=== PATIENT | male | born 1940 | race Caucasian/White ===

== ENCOUNTER 2017-05-31 12:46 | Observation (INO) ==
[2017-05-31] MEDS ORDERED: 0.9 % Sodium Chloride 1,000 ML IVC ONE (12:53)
[2017-05-31 13:11] LABS: Basophils % 0.5 %; Eosinophils # 0.2 K/mcL (0.0-0.6); Eosinophils % 2.4 %; Hematocrit 34.9 % (37.5-50.1); Hemoglobin 11.8 g/dL (12.9-16.9); Immature Granulocytes % 0.5 % (0-4); Lymphocytes % 14.8 %; Mean Corpuscular HGB Conc 33.8 g/dL (31.6-35.5); Mean Corpuscular Hemoglobin 30.6 pg (28.0-33.3); Mean Corpuscular Volume 90.4 fL (83.0-100.0); Mean Platelet Volume 9.7 fL (9.4-12.4); Monocytes # 0.4 K/mcL (0.0-1.3); Monocytes % 5.8 %; Platelet Count 194 K/mcL (140-400); Red Blood Count 3.86 M/mcL (4.19-5.50); Red Cell Distribution Width 13.2 % (11.5-14.5)
[2017-05-31 13:16] LABS: INR 1.2; Prothrombin Time 12.8 Seconds (9.4-12.1)
[2017-05-31 13:18] LABS: Activated Partial Thrombo Time 28.8 Seconds (26.0-36.0)
[2017-05-31 13:23] LABS: BUN/Creatinine Ratio 12 (6-26); Blood Urea Nitrogen 15 mg/dL (8-26); Carbon Dioxide 26 mEq/L (19-29); Chloride 105 mEq/L (98-109); Glucose 112 mg/dL (70-99); Osmolality,Calculated 290 (280-300); Potassium 3.5 mEq/L (3.5-4.5); Sodium 139 mEq/L (136-145); eGFR For African Americans > 60 (> 60); eGFR For Non-African Americans 58 (> 60)
--- NOTE | 2017-05-31 13:28 | Emergency Department Note ---
Disposition Clinical Impression: Syncope Qualifiers: Syncope type: unspecified Qualified Code(s): R55 - Syncope and collapse Disposition: Admitted As Inpatient Condition: Good Referrals: NONE,PCP [Non-Partnered Physician] - Forms: ED Satisfaction Letter Time of Disposition: 14:03 Weakness HPI - General Chief complaint: ED Weakness Stated complaint: Weakness Time Seen by Provider: 05/31/17 12:50 Source: patient, EMS, other Limitations: no limitations Nursing Notes Reviewed: Yes Vital Signs Reviewed: Yes - History of Present Illness HPI Narrative: 76 year old male who is here with his brother (JOYCE) and other rib builder and he has baseline MRDD so the rib builder and brother are main historian. they state that patient has been at the fair today (usually drinks soda and coffee) and that he went and got his food and then sat down and suddenly had a syncopal event for about one minute and that is when squad was called which he then became aleart and did not recollect what happened. Patient has a history of stroke from the past which has left him with some right sided defecit. Patient at the time of syncopal event was diaphoretic and nauseated as well. Patient states that he feels better now and is essentialy asymoptomatic although he is a poor and unreliable historian. Pain Scale: 0 - Related Data Home Medications Medication Instructions Recorded Confirmed Aspirin Enteric Coated [Aspirin EC] 325 mg PO DAILY 05/31/17 05/31/17 Fluticasone Propionate Nasal 2 spr NS DAILY 05/31/17 05/31/17 [Flonase] Lisinopril/Hydrochlorothiazide 1 tab PO DAILY 05/31/17 05/31/17 [Zestoretic 20-25 mg Tablet] Loratadine [Allergy Relief] 10 mg PO DAILY 05/31/17 05/31/17 Montelukast [Singulair] 10 mg PO DAILY 05/31/17 05/31/17 Simvastatin [Zocor] 10 mg PO QPM 05/31/17 05/31/17 Terazosin [Hytrin] 5 mg PO DAILY 05/31/17 05/31/17 Allergies Allergy/AdvReac Type Severity Reaction Status Date / Time Penicillins Allergy See Verified 05/31/17 13:50 Comments Sulfa (Sulfonamide Allergy See Verified 05/31/17 13:50 Antibiotics) Comments Constitutional: Reports: weakness. Denies: fever, chills, weight change Eyes: Denies: eye pain, eye discharge, vision change ENT ED: Denies: ear pain, throat pain, dental pain, hearing loss, epistaxis, congestion, dysphagia Cardiovascular: Denies: chest pain, palpitations, dyspnea on exertion, edema, syncope Respiratory: Denies: cough, dyspnea, wheezes, hemoptysis, stridor Gastrointestinal: Reports: nausea. Denies: abdominal pain, vomiting, diarrhea, constipation, hematemesis, melena, hematochezia Genitourinary: Denies: urgency, dysuria, frequency, hematuria Musculoskeletal: Denies: back pain, neck pain, arthralgia, myalgia Integumentary: Denies: rash, abrasion, lesions Neurological: Denies: headache, weakness, numbness, paresthesias, confusion, abnormal gait, vertigo Psychiatric: Denies: anxiety, depression, suicidal thoughts, homicidal thoughts , auditory hallucinations, visual hallucinations Endocrine: Denies: fatigue Hematological/Lymphatic: Denies: easy bleeding, easy bruising Allergic/Immunologic: Denies: facial swelling, urticaria Past Medical History - Past Medical History Medical history: Reports: non-contributory, other - Social History Smoking Status: Never smoker Smokeless Tobacco Status: No Alcohol use: Reports: none Drug use: Reports: none Physical Exam - General Limitations: no limitations General appearance: alert, in no apparent distress - Head Head exam: atraumatic, normocephalic, normal inspection - Eye Eye exam: Present: normal appearance, PERRL, EOMI - Expanded Eye Exam Pupils: Left: reactive - ENT ENT exam: normal exam, normal oropharynx, mucous membranes moist - Expanded ENT Exam External ear exam: Present: normal external inspection Mouth exam: Present: normal external inspection Teeth exam: Present: normal inspection Throat exam: Present: normal inspection - Neck Neck exam: Present: normal inspection, full ROM, trachea midline - Chest Chest inspection: Present: normal inspection, symmetric chest wall rise - Respiratory Respiratory exam: Present: normal lung sounds bilaterally - Cardiovascular Cardiovascular exam: Present: regular rate, normal rhythm, normal heart sounds - Abdominal Exam Abdominal exam: Present: soft, Non-Tender. Absent: tenderness, distention, guarding, rebound, rigidity - Extremities Exam Extremities exam: Present: normal inspection, full ROM. Absent: tenderness, pedal edema - Expanded Upper Extremity Exam Shoulder exam: Present: normal inspection, full ROM Arm exam: Present: normal inspection, full ROM Elbow exam: Present: normal inspection, full ROM Forearm/Wrist exam: Present: normal inspection, full ROM Hand exam: Present: normal inspection, full ROM Vascular exam: Normal: capillary refill, radial pulse - Expanded Lower Extremity Exam Hip/Pelvis exam: Present: normal inspection, full ROM Upper leg exam: Present: normal inspection, full ROM Knee exam: Present: normal inspection, full ROM Lower leg exam: Present: normal inspection, full ROM Ankle exam: Present: normal inspection, full ROM Foot/toe exam: Present: normal inspection, full ROM Neurovascular/Tendon exam: Absent: motor deficit, sensory deficit, tendon deficit - Back Exam Back exam: Present: normal inspection, full ROM. Absent: tenderness - Neurological Exam Neurological exam: Present: alert, oriented X3 - Expanded Neurological Exam Patient oriented to: Present: person, place, time Speech: Present: fluid speech Cranial nerves: EOM function (II, III, IV, ): Normal, facial sensation (V): Normal, facial palsy (VII): Normal, gag reflex (IX): Normal, tongue deviation ( XII): Normal Cerebellar function: finger to nose: Normal Cerebellar function: normal gait Motor strength - LUE: 4/5 Motor strength - RUE: 4/5 Motor strength - LLE: 4/5 Motor strength - RLE: 4/5 Upper motor neuron exam: kylie neglect: Absent bilaterally, pronator drift: Absent bilaterally Sensory exam upper extremity: light touch: Normal, pin prick: Normal Sensory exam lower extremity: light touch: Normal, pin prick: Normal Coma Scale Eye Opening: Spontaneous Coma Scale Motor Response: Obeys Commands Coma Scale Verbal Response: Oriented Coma Scale Total: 15 - Psychiatric Psychiatric exam: Present: normal affect, normal mood - Skin Skin exam: Present: warm, dry, intact, normal color Course Course Narrative: we will do a cardiac workup as in my differentia is ACS r/o DE as well as arrhtyhmias. There may be a source of dehydration as well. Although I am more concernd for a cardiac source. Will likely admit to medicine. - Reevaluation(s) Reevaluation #1: updated patient and family on results We will admit to medicine for at least obs because of the suspicious story for syncope and for nothing else to wath his cardiac rhythm. Patient does not appear to have dehydration component on board and due to his age an abnormla cardiac rhythm could be a possibliity. Patinet and family are agreeable to plan. Time: 14:03 Vital Signs Temperature 98 F 05/31/17 12:49 Pulse Rate 73 05/31/17 12:49 Respiratory Rate 16 05/31/17 12:49 Blood Pressure 104/61 05/31/17 12:49 O2 Sat by Pulse Oximetry 94 05/31/17 12:49 Temperature 98 F 05/31/17 12:49 Pulse Rate 73 05/31/17 13:30 Respiratory Rate 16 05/31/17 13:30 Blood Pressure 118/64 05/31/17 13:30 O2 Sat by Pulse Oximetry 96 05/31/17 13:30 Oxygen Delivery Oxygen Delivery Room Air Weakness - Lab Data Result diagrams: 05/31/17 13:04 05/31/17 13:04 Lab Results 05/31/17 05/31/17 05/31/17 Range/Units 13:04 13:04 13:04 WBC 6.6 (4.3-11.1) K/mcL RBC 3.86 L (4.19-5.50) M/mcL Hgb 11.8 L (12.9-16.9) g/dL Hct 34.9 L (37.5-50.1) % MCV 90.4 (83.0-100.0) fL MCH 30.6 (28.0-33.3) pg MCHC 33.8 (31.6-35.5) g/dL RDW 13.2 (11.5-14.5) % Plt Count 194 (140-400) K/mcL MPV 9.7 (9.4-12.4) fL Immature Gran % 0.5 (0-4) % Seg Neutrophils % 76.0 % Lymphocytes % 14.8 % Monocytes % 5.8 % Eosinophils % 2.4 % Basophils % 0.5 % Neutrophils # 5.0 (1.6-8.9) K/mcL Lymphocytes # 1.0 (0.6-4.6) K/mcL Monocytes # 0.4 (0.0-1.3) K/mcL Eosinophils # 0.2 (0.0-0.6) K/mcL Basophils # 0.0 (0.0-0.2) K/mcL PT 12.8 H (9.4-12.1) Seconds INR 1.2 APTT 28.8 (26.0-36.0) Seconds Sodium 139 (136-145) mEq/L Potassium 3.5 (3.5-4.5) mEq/L Chloride 105 (98-109) mEq/L Carbon Dioxide 26 (19-29) mEq/L BUN 15 (8-26) mg/dL Creatinine 1.21 (0.72-1.25) mg/dL Est GFR ( Amer) > 60 (> 60) Est GFR (Non-Af Amer) 58 L (> 60) BUN/Creatinine Ratio 12 (6-26) Glucose 112 H (70-99) mg/dL POC Glucose (58-89) Calculated Osmolality 290 (280-300) Calcium 9.0 (8.6-10.8) mg/dL Troponin I (0-0.03) ng/mL 05/31/17 05/31/17 Range/Units 13:04 13:06 WBC (4.3-11.1) K/mcL RBC (4.19-5.50) M/mcL Hgb (12.9-16.9) g/dL Hct (37.5-50.1) % MCV (83.0-100.0) fL MCH (28.0-33.3) pg MCHC (31.6-35.5) g/dL RDW (11.5-14.5) % Plt Count (140-400) K/mcL MPV (9.4-12.4) fL Immature Gran % (0-4) % Seg Neutrophils % % Lymphocytes % % Monocytes % % Eosinophils % % Basophils % % Neutrophils # (1.6-8.9) K/mcL Lymphocytes # (0.6-4.6) K/mcL Monocytes # (0.0-1.3) K/mcL Eosinophils # (0.0-0.6) K/mcL Basophils # (0.0-0.2) K/mcL PT (9.4-12.1) Seconds INR APTT (26.0-36.0) Seconds Sodium (136-145) mEq/L Potassium (3.5-4.5) mEq/L Chloride (98-109) mEq/L Carbon Dioxide (19-29) mEq/L BUN (8-26) mg/dL Creatinine (0.72-1.25) mg/dL Est GFR ( Amer) (> 60) Est GFR (Non-Af Amer) (> 60) BUN/Creatinine Ratio (6-26) Glucose (70-99) mg/dL POC Glucose 110 H (58-89) Calculated Osmolality (280-300) Calcium (8.6-10.8) mg/dL Troponin I 0.00 (0-0.03) ng/mL - EKG Data EKG attestation: Yes I reviewed and interpreted this EKG. EKG results narrative: NSR with rate of 67. NO STEMI normal intervals. no old ekg 1249
[2017-05-31] MEDS ORDERED: Naloxone 0.4 MG/ML INJ IVP PRN (15:44)
--- NOTE | 2017-05-31 16:02 | Internal Med History&Physical ---
<Paco Ross - Last Filed: 05/31/17 15:56> Date of Encounter: 05/31/17 Time of Encounter: 15:57 Assessment and Plan (1) Syncope Current visit: Yes Status: Acute Witnessed syncopal event this afternoon with diaphoresis, was unresponsive for approximately 1 minute. no focal deficits present following syncope. EKG in the ED showed normal sinus rhythm, was a little hypotensive on arrival and received a 2 L fluid bolus which corrected the hypotension, first troponin is negative. Considering cardiogenic versus neurogenic syncope as he does have a past history of CVA. However, at this time it appears to be cardiogenic since he has not exhibited any focal neuro deficits. We will consider further neurological workup depending on the results of the CT head without contrast and if neuro deficits arise. Place in observation status Continuous cardiac monitoring CT head without contrast Bilateral carotid duplex O2 as needed Every 4 hours neuro checks ordered Every 4 hours vital signs Obtain orthostatic vital signs obtain TSH with morning labs Continue antihypertensives since his blood pressure has responded to the bolus Gentle IV hydration at 50 mL per hour 1 L Check a CBC and BMP in the a.m. Qualifiers: Syncope type: unspecified Qualified Code(s): R55 - Syncope and collapse (2) HTN (hypertension) Current visit: Yes Status: Chronic History of chronic essential hypertension. However, upon presenting to the emergency department he was hypotensive. He received a 2 L bolus and responded appropriately. We will continue home dose of lisinopril and Terazosin for now. If hypotension recurs, will stop blood pressure medications Qualifiers: Hypertension type: essential hypertension Qualified Code(s): I10 - Essential (primary) hypertension (3) DVT prophylaxis Current visit: Yes Status: Acute Risk for DVT with a decrease in activity while admitted to the hospital. Start lovenox SC daily dose. Internal Medicine - H&P: HPI Chief complaint: Witnessed syncopal event Admitted From: Home Plans for Post Hospital Care: Home History of present illness: Mr. Abbasi is a 76 year old male with a past medical history of CVA as reported by his brother, homonymous hemianopsia, hypertension, hyperlipidemia, BPH. Lives at home with his brother and [id number]. Presented to [facility] today on 05-31-17 for a witnessed syncopal event. All information was obtained from chart review and patient/family member report. The patient does have MRDD. Presents with his brother stating that he went to the fair today with his caretakers. States that he went to get some food and when he sat down he suddenly became diaphoretic and syncopal; event lasted for approximately 1 minute. The squad was then called and he was transported to [facility]. In the ED he received a 2 L fluid bolus as he was hypotensive on arrival. Blood pressure is now stable with systolic blood pressures in the 140s. Neuro exam revealed no focal deficits with the exception of right-sided weakness which his brother has reported an having since , troponins were obtained and found to be negative. CBC and BMP were obtained and unremarkable. The patient denied any shortness of breath, chest pain, dyspnea, dizziness, vision changes, headaches, or weakness. Plan is to rule out syncopal event cardiogenic versus neurogenic versus medications. He is being admitted today for observation, further workup and evaluation. Past Med Surg Social Fam HX - Past Medical History Medical history: non-contributory, other - Social History Smoking Status: Never smoker Smokeless Tobacco Status: No Alcohol use: none Drug use: none Internal Medicine - H&P: Meds Aspirin Enteric Coated [Aspirin EC] 325 mg PO DAILY 05/31/17 [History] Fluticasone Propionate Nasal [Flonase] 2 spr NS DAILY 05/31/17 [History] Lisinopril/Hydrochlorothiazide [Zestoretic 20-25 mg Tablet] 1 tab PO DAILY 05/31 [History] Loratadine [Allergy Relief] 10 mg PO DAILY 05/31/17 [History] Montelukast [Singulair] 10 mg PO DAILY 05/31/17 [History] Simvastatin [Zocor] 10 mg PO QPM 05/31/17 [History] Terazosin [Hytrin] 5 mg PO DAILY 05/31/17 [History] Allergies Penicillins Allergy (Verified 05/31/17 13:50) See Comments Patient is unsure of reaction. Sulfa (Sulfonamide Antibiotics) Allergy (Verified 05/31/17 13:50) See Comments Patient unsure of reaction All Systems PM: A 10-system review of systems was performed and is negative for pertinent findings except as documented above in the HPI. - Constitutional Constitutional: no chills, no fatigue, no fever(s), no falls, no lethargy, no night sweats, no weakness, no weight gain - EENT Eyes: no blurry vision, no change in vision, no discharge, no pain, no photophobia Additional comments: The vision changes noted from patient normal, he does have a history of homonymous hemianopsia Ears: no ear discharge, no ear pain, no tinnitus Nose, mouth and throat: no dysphagia, no nasal discharge, no neck pain, no sore throat - Cardiovascular Cardiovascular ROS IM: diaphoresis, lightheadedness, syncope, no chest pain, no dyspnea, no dyspnea on exertion, no edema, no irregular heart rhythm, no palpitations Additional comments: Admitted to being diaphoretic during the syncopal event - Respiratory Respiratory: no cough, no dyspnea, no dyspnea on exertion, no wheezing, no excessive phlegm production - Gastrointestinal Gastrointestinal: no abdominal pain, no diarrhea, no hematemesis, no hematochezia, no melena, no nausea, no vomiting - Musculoskeletal Musculoskeletal ROS IM: no muscle cramps, no muscle weakness, no numbness, no tingling - Integumentary Integumentary IM: no rash, no unusual bruising - Neurological Neurological ROS: weakness, no behavioral changes, no confusion, no convulsions , no dizziness, no focal weakness, no headache(s), no loss of vision, no numbness, no tingling, no tremor(s) - Hematologic/Lymphatic Hematologic/Lymphatic: no easy bruising - Constitutional Vitals: Temp Pulse Resp BP Pulse Ox 98 F 73 16 123/83 96 05/31/17 12:49 05/31/17 13:30 05/31/17 15:43 05/31/17 15:43 05/31/17 13:30 General appearance: Present: A&O X 3, pleasant, no acute distress, answers questions appropriately - Head Head exam: Present: atraumatic, normocephalic - Eye Eye exam: Present: EOMI, PERRL, conjuntiva pink, sclera anicteric. Absent: nystagmus Pupils: Present: PERRL - Neck Neck exam general surgery: Present: supple, trachea midline. Absent: lymphadenopathy - Respiratory Respiratory exam: Present: CTAB. Absent: accessory muscle use, rales, rhonchi, wheezes - Cardiovascular Cardiovascular exam: Present: RRR, +S1, +S2. Absent: diastolic murmur, gallop, rubs, systolic murmur - Expanded Cardiovascular Exam Peripheral pulses: 2+: Radial (L), Radial (R), Posterior Tibialis (L), Posterior Tibialis (R) - GI/Abdominal GI/Abdominal exam: Present: normal bowel sounds, soft, no peritoneal signs. Absent: distended, tenderness - Extremities Exam Extremities exam: Present: normal capillary refill, warm, radial pulses palpable and symmetrical. Absent: calf tenderness, cyanotic, pedal edema - Neurological Exam Neurological exam: Present: CN II-XII intact, oriented X3, no focal deficits. Absent: pronater drift, facial droop, speech deficit - Skin Skin exam: Present: dry, intact Internal Med - H&P Results - Labs CBC & Chem 7: 05/31/17 13:04 05/31/17 13:04 - EKG Data -: EKG Interpreted by Myself EKG shows normal: sinus rhythm Rate: normal <Lara Gomez - Last Filed: 05/31/17 18:49> Date of Encounter: 05/31/17 Internal Medicine - H&P: HPI History of present illness: Mr. Abbasi is a 76 year old male All Systems PM: A 10-system review of systems was performed and is negative for pertinent findings except as documented above in the HPI. - Constitutional Vitals: Temp Pulse Resp BP Pulse Ox 97.6 F 73 14 152/84 97 05/31/17 16:21 05/31/17 16:21 05/31/17 16:21 05/31/17 16:21 05/31/17 18:28 Internal Med - H&P Results - Labs CBC & Chem 7: 05/31/17 13:04 05/31/17 13:04 - Impressions ITS Impressions Head CT 05/31/17 16:41 IMPRESSION: 1. 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 2. No acute intracranial abnormality. 3. Evidence of acute on chronic sinusitis involving the left maxillary sinus. Interval resolution of mucosal thickening within the right maxillary sinus. D/ / Tanmay Martin MD / Tanmay Martin MD Interpreting Provider: Tanmay Martin MD - Attending Attestation I examined this patient and my medical decision-making was reviewed with the [employer]> . I agree with the documented findings, disposition and treatment plan as described .
[2017-05-31] MEDS: 0.9 % Sodium Chloride 1,000 ML IVC SCH (16:17)
[2017-06-01 01:31] LABS: Basophils % 0.4 %; Eosinophils # 0.3 K/mcL (0.0-0.6); Eosinophils % 3.6 %; Hematocrit 34.5 % (37.5-50.1); Hemoglobin 11.7 g/dL (12.9-16.9); Immature Granulocytes % 0.3 % (0-4); Immature Platelets 3.4 % (1.1-6.1); Lymphocytes # 1.4 K/mcL (0.6-4.6); Mean Corpuscular HGB Conc 33.9 g/dL (31.6-35.5); Mean Corpuscular Hemoglobin 30.6 pg (28.0-33.3); Mean Corpuscular Volume 90.3 fL (83.0-100.0); Mean Platelet Volume 9.9 fL (9.4-12.4); Monocytes # 0.6 K/mcL (0.0-1.3); Monocytes % 8.2 %; Neutrophils # 4.6 K/mcL (1.6-8.9); Platelet Count 220 K/mcL (140-400); Red Blood Count 3.82 M/mcL (4.19-5.50); Red Cell Distribution Width 13.1 % (11.5-14.5); Segmented Neutrophils % 66.5 %
[2017-06-01 01:46] LABS: Alanine Aminotransferase 16 Units/L (0-55); Albumin 3.1 g/dL (3.5-5.0); Albumin/Globulin Ratio 0.9 (1.1-2.2); Alkaline Phosphatase 67 Units/L (38-126); Aspartate Amino Transferase 28 Units/L (5-34); BUN/Creatinine Ratio 14 (6-26); Bilirubin,Total 0.4 mg/dL (0.2-1.2); Blood Urea Nitrogen 14 mg/dL (8-26); Calcium 8.6 mg/dL (8.6-10.8); Carbon Dioxide 25 mEq/L (19-29); Chloride 107 mEq/L (98-109); Globulin 3.5 g/dL (2.4-3.5); Glucose 95 mg/dL (70-99); Osmolality,Calculated 288 (280-300); Sodium 139 mEq/L (136-145); Total Protein 6.6 g/dL (6.0-8.3); eGFR For African Americans > 60 (> 60); eGFR For Non-African Americans > 60 (> 60)
[2017-06-01 01:47] LABS: Potassium 3.8 mEq/L (3.5-4.5)
[2017-06-01 02:08] LABS: Thyroid Stimulating Hormone 0.738 mcIU/mL (0.350-4.840)
[2017-06-01] MEDS ORDERED: *HR* Enoxaparin 40 MG/0.4 ML SYRINGE SQ SCH (06:00)
[2017-06-01] MEDS ORDERED: Fluticasone Propionate Nasal 50 MCG/SPRAY BOTTLE NS SCH (09:00)
[2017-06-01] MEDS ORDERED: Aspirin Enteric Coated 325 MG Tablet PO SCH (09:00)
[2017-06-01] MEDS ORDERED: Loratadine 10 MG TABLET PO SCH (09:00)
[2017-06-01 11:12] VITALS: BP 139/73
[2017-06-01] MEDS: 0.9 % Sodium Chloride 1,000 ML IVC SCH (11:13)
--- NOTE | 2017-06-01 11:41 | Discharge Summary ---
Date of Encounter: 06/01/17 Time of Encounter: 11:41 - Discharge Diagnosis (1) Syncope Priority: Primary Status: Acute Qualifiers: Syncope type: unspecified Qualified Code(s): R55 - Syncope and collapse (2) HTN (hypertension) Priority: Secondary Status: Chronic Qualifiers: Hypertension type: essential hypertension Qualified Code(s): I10 - Essential (primary) hypertension (3) HLD (hyperlipidemia) Priority: Secondary Status: Acute Qualifiers: Hyperlipidemia type: mixed hyperlipidemia Qualified Code(s): E78.2 - Mixed hyperlipidemia (4) DVT prophylaxis Priority: Secondary Status: Acute - Discharge Medications Prescriptions: Lisinopril/Hydrochlorothiazide [Zestoretic 20-12.5 mg Tablet] 1 each PO DAILY # 30 tablet Home Medications: Aspirin Enteric Coated [Aspirin EC] 325 mg PO DAILY 05/31/17 [History] Fluticasone Propionate Nasal [Flonase] 2 spr NS DAILY 05/31/17 [History] Loratadine [Allergy Relief] 10 mg PO DAILY 05/31/17 [History] Montelukast [Singulair] 10 mg PO DAILY 05/31/17 [History] Simvastatin [Zocor] 10 mg PO QPM 05/31/17 [History] Lisinopril/Hydrochlorothiazide [Zestoretic 20-12.5 mg Tablet] 1 each PO DAILY # 30 tablet 06/01/17 [Rx] Terazosin [Hytrin] 5 mg PO HS #0 06/01/17 [Rx] Allergies/Adverse Reactions: Allergies Penicillins Allergy (Verified 05/31/17 13:50) See Comments Patient is unsure of reaction. Sulfa (Sulfonamide Antibiotics) Allergy (Verified 05/31/17 13:50) See Comments Patient unsure of reaction Procedures/tests Complete & Pending: Procedures Performed prior 72 hours Category Date Time Status CT head/brain wo con [CT] Stat Cat Scan 05/31/17 16:41 Completed EV carotid duplex imaging BI Stat Y 05/31/17 16:41 Completed EV echocardiogram Stat Y 05/31/17 16:32 Completed Date of admission: 05/31/17 14:29 Primary care physician: Arlene Champagne Consults: 05/31/17 16:07 Consult to Rooming House Inspector [CONS] Routine Reason for SW Consult: discharge planning Discharging clinician: Marva Escobar Anticipated date of discharge: 06/01/17 - Patient Status Disposition: Home, Self-Care Condition: Good Functional capacity at discharge: independent ambulation Overall status at discharge: patient is progressing back to baseline - Discharge Instructions Instructions: Syncope (DC) Follow Up With: Arlene Champagne MD [Primary Care Provider] - (in 1-2 weeks) - Diet and Activity Activity: increase activity as tolerated Diet: low fat, low cholesterol, low salt diet Hospital course: Mr. Abbasi is a 76 year old male patient with a history of CVA, homonymous hemianopsia, hypertension, hyperlipidemia and BPH with MRDD who was hospitalized here following an episode of syncope while the patient was outside at the [facility]. He apparently had been ambulating through most of the morning after eating a light breakfast and had just sat down to eat lunch when he became passed out for about 1 minute according to his family members who were with him. He was then transported to the ER here and by that time his symptoms had mostly resolved. CT scan of the head done in the ER did not show any acute abnormalities. Patient was hospitalized for workup of syncope. He did have signs suggestive of dehydration with a slight elevation in his creatinine. Patient does take lisinopril and hydrochlorothiazide at home. He also takes Hytrin in the morning which can cause orthostatic hypotension. Patient underwent 2-D echocardiogram which showed normal ejection fraction of 60 -65% with mild left ventricular diastolic dysfunction. Carotid Dopplers did not show any significant stenosis. Patient's orthostatic blood pressure was checked this morning and they were negative for signs of orthostasis. At this time patient is feeling much better and is stable to be discharged home. Most likely his syncopal episode was related to dehydration. Patient does state lots of caffeine in the form of Pepsi Cola and coffee and also takes hydrochlorothiazide which can make him dehydrated. His dosage of hydrochlorothiazide will be decreased. He is also advised to take his Hytrin at bedtime for symptoms of orthostatic hypotension gave him the daytime. He can follow up with his primary care provider for further management. - Time Spent with Patient Total time spent providing and/or coordinating discharge services: Less than 30 minutes (25 min) - Constitutional Vitals: Temp Pulse Resp BP Pulse Ox 98.1 F 65 14 139/73 97 06/01/17 10:24 06/01/17 10:24 06/01/17 10:24 06/01/17 10:24 06/01/17 10:24 General appearance: Present: A&O X 3, pleasant, no acute distress, answers questions appropriately - Respiratory Respiratory exam: Present: CTAB. Absent: accessory muscle use, rales, rhonchi, wheezes - Cardiovascular Cardiovascular exam: Present: RRR, +S1, +S2. Absent: diastolic murmur, gallop, rubs, systolic murmur - GI/Abdominal GI/Abdominal exam: Present: normal bowel sounds, soft, no peritoneal signs. Absent: distended, tenderness - Neurological Exam Neurological exam: Present: alert, oriented X3, no focal deficits, strengths equal and symetr throughout. Absent: facial droop, speech deficit
--- NOTE | 2017-06-01 15:26 | Electrocardiograph Report ---
[place] [id number] Test Date: 2017-05-31 Pat Name: Kyaw Abbasi Department: 102 Room: 3A21 Gender: M [employer]visor [employer]: Maia : 1940 Requested By: No Philippe Order Number: [id number] Reading MD: Raffy Morales Measurements Intervals [place] Rate: 67 P: 38 VA: 199 QRS: 24 QRSD: 110 T: 31 QT: 397 QTc: 412 Interpretive Statements SINUS RHYTHM Electronically Signed On 06-01-2017 15:24:28 EDT by Raffy Morales
--- NOTE | 2017-06-02 12:51 | Carotid Imaging Report ---
Carotid Duplex Patient Name:Kyaw Abbasi Order Number:[id number] Procedure Date:05/31/2017 Date:8Age:76 yrs Gender:Male Lt BP:152 / 84 mmHg Rt.BP:152 / 84 mmHgHeart Rate: Location:[facility] Room #: 3A21 News Videotape Editor:Yessi Fam Referring MD:Paco Ross CNP information assurance:None Reading MD:Connor Grider MD , FACS Primary Indications:Witnessed syncopal event Risk Factors Yes/No Hypertension Hypercholesterolemia Hx of CVA Impressions: Findings: Bilateral carotid systems essentially normal. Carotid Results Right PSV EDV Assessment Proximal CCA 167 20 Normal Mid CCA 92 13 Normal Distal CCA 81 16 Normal Bifurcation 48 11 Normal Proximal ICA 63 18 Normal Mid ICA 83 24 Normal Distal ICA 90 32 Normal ECA 115 20 Normal Vertebral Artery 42 13 Antegrade Flow Left PSV EDV Assessment Proximal CCA 134 20 Normal Mid CCA 123 20 Normal Distal CCA 111 18 Normal Bifurcation 98 19 Normal Proximal ICA 77 15 Normal Mid ICA 78 22 Normal Distal ICA 88 33 Normal ECA 121 16 Normal Vertebral Artery 35 10 Antegrade Flow Ratio's Right ICA/CCA Ratio: 0.98 ICA/CCA Values: 90/92 Left ICA/CCA Ratio: 0.72 ICA/CCA Values: 88/123 Updated by Connor Grider MD, FACS on 06/02/2017 12:43:28 PM Connor Grider MD electronically signed on 06/02/2017 12:43:46 PM with status of Final
== END 2017-06-01 12:44 | disposition home or self-care (01) ==
LOC: 3ANU 12:46 → EMEROO 12:46 → 3ANU 15:56
PROVIDERS: ADMIT Internal Medicine; ATTEND Internal Medicine

== ENCOUNTER 2020-11-06 16:58 | Observation (INO) ==
[2020-11-06 17:53] LABS: Basophils % 0.1 %; Eosinophils # 0.1 K/mcL (0.0-0.6); Eosinophils % 0.6 %; Hematocrit 30.5 % (37.5-50.1); Hemoglobin 9.8 g/dL (12.9-16.9); Immature Granulocytes % 1.5 % (0-4); Lymphocytes # 0.4 K/mcL (0.6-4.6); Lymphocytes % 4.7 %; Mean Corpuscular HGB Conc 32.1 g/dL (31.6-35.5); Mean Corpuscular Hemoglobin 28.7 pg (28.0-33.3); Mean Corpuscular Volume 89.4 fL (83.0-100.0); Monocytes # 0.3 K/mcL (0.0-1.3); Monocytes % 4.2 %; Neutrophils # 7.1 K/mcL (1.6-8.9); Platelet Count 230 K/mcL (140-400); Red Blood Count 3.41 M/mcL (4.19-5.50); Red Cell Distribution Width 13.9 % (11.5-14.5); Segmented Neutrophils % 88.9 %
[2020-11-06 18:11] LABS: BUN/Creatinine Ratio 23 (6-26); Blood Urea Nitrogen 26 mg/dL (8-23); Calcium 8.4 mg/dL (8.6-10.3); Carbon Dioxide 23 mEq/L (23-29); Chloride 100 mEq/L (98-107); Glucose 225 mg/dL (70-105); Osmolality,Calculated 288 (280-300); Potassium 3.4 mEq/L (3.5-5.1); Sodium 133 mEq/L (136-145); eGFR For African Americans > 60 (> 60); eGFR For Non-African Americans > 60 (> 60)
[2020-11-06 18:12] LABS: Troponin I < 0.03 ng/mL (< 0.04)
[2020-11-06] MEDS ORDERED: Dexamethasone 4 MG/ML VIAL IVP ONE (18:52)
[2020-11-06] MEDS ORDERED: cefTRIAXone 1,000 MG in Water for inj. (sterile) 10 ML IVP ONE (19:38)
[2020-11-06] MEDS ORDERED: Azithromycin 500 MG in 0.9 % Sodium Chloride 250 ML IVPB ONE (19:38)
[2020-11-06] MEDS ORDERED: Naloxone 0.4 MG/ML INJ IVP PRN (20:30)
[2020-11-06] MEDS ORDERED: Ondansetron 4 MG/2 ML VIAL IVP PRN (20:30)
[2020-11-06] MEDS ORDERED: Ipratropium 1 PUFF INHALER IH PRN (20:35)
[2020-11-06] MEDS: *HR* Heparin 5,000 UNIT/ML VIAL SQ SCH (22:57)
[2020-11-06] MEDS ORDERED: D5% in Water 1,000 ML IVC PRN (23:41)
[2020-11-06] MEDS ORDERED: *HR* Dextrose 50 % in Water (Vial) 50 ML VIAL IVP PRN (23:41)
[2020-11-06] MEDS ORDERED: Dextrose Gel 15 GM/37.5 ML TUBE PO PRN ×2 (23:41)
[2020-11-07 02:29] LABS: Fibrinogen 615 mg/dL (169-393)
[2020-11-07 02:31] LABS: D-Dimer 1210 ng/mLFEU (0-500)
[2020-11-07] MEDS: Insulin LISPRO 300 UNITS/3 ML VIAL SUBQ SCH ×4 (03:24→18:40)
[2020-11-07] MEDS: *HR* Heparin 5,000 UNIT/ML VIAL SQ SCH ×3 (04:09→23:36)
[2020-11-07 08:03] LABS: Hematocrit 30.8 % (37.5-50.1); Hemoglobin 10.1 g/dL (12.9-16.9); Mean Corpuscular HGB Conc 32.8 g/dL (31.6-35.5); Mean Corpuscular Hemoglobin 29.4 pg (28.0-33.3); Mean Corpuscular Volume 89.8 fL (83.0-100.0); Mean Platelet Volume 9.6 fL (9.4-12.4); Platelet Count 221 K/mcL (140-400); Red Blood Count 3.43 M/mcL (4.19-5.50); Red Cell Distribution Width 13.7 % (11.5-14.5); White Blood Count 7.6 K/mcL (4.3-11.1)
[2020-11-07 08:24] LABS: BUN/Creatinine Ratio 24 (6-26); Blood Urea Nitrogen 18 mg/dL (8-23); Calcium 8.5 mg/dL (8.6-10.3); Carbon Dioxide 26 mEq/L (23-29); Chloride 103 mEq/L (98-107); Glucose 133 mg/dL (70-105); Osmolality,Calculated 288 (280-300); Potassium 3.6 mEq/L (3.5-5.1); Sodium 137 mEq/L (136-145); eGFR For African Americans > 60 (> 60); eGFR For Non-African Americans > 60 (> 60)
[2020-11-07 08:27] LABS: C-Reactive Protein 120 mg/L (Less than 10)
[2020-11-07] MEDS ORDERED: Dexamethasone 4 MG/ML VIAL IVP SCH (09:00)
[2020-11-07] MEDS ORDERED: cefTRIAXone 1,000 MG in 0.9 % Sodium Chloride Mini Bag 100 ML IVPB SCH (09:00)
[2020-11-07 10:04] LABS: Estimated Average Glucose 128 mg/dl; Hemoglobin A1C 6.1 %
[2020-11-07] MEDS: Azithromycin 500 MG in 0.9 % Sodium Chloride 250 ML IVPB SCH (10:10)
[2020-11-07] MEDS: cefTRIAXone 1,000 MG in Water for inj. (sterile) 10 ML IVP SCH (18:41)
[2020-11-08] MEDS: Insulin LISPRO 300 UNITS/3 ML VIAL SUBQ SCH ×4 (01:15→21:04)
[2020-11-08] MEDS: *HR* Heparin 5,000 UNIT/ML VIAL SQ SCH ×3 (06:02→20:55)
[2020-11-08 10:55] LABS: Basophils % 0.3 %; Eosinophils % 0.2 %; Hematocrit 32.9 % (37.5-50.1); Hemoglobin 10.4 g/dL (12.9-16.9); Immature Granulocytes % 2.1 % (0-4); Lymphocytes % 8.2 %; Mean Corpuscular HGB Conc 31.6 g/dL (31.6-35.5); Mean Corpuscular Hemoglobin 28.9 pg (28.0-33.3); Mean Corpuscular Volume 91.4 fL (83.0-100.0); Mean Platelet Volume 9.9 fL (9.4-12.4); Monocytes # 0.4 K/mcL (0.0-1.3); Monocytes % 3.4 %; Platelet Count 294 K/mcL (140-400); Red Cell Distribution Width 13.7 % (11.5-14.5); Segmented Neutrophils % 85.8 %
[2020-11-08 10:59] LABS: White Blood Count 11.7 K/mcL (4.3-11.1)
[2020-11-08 11:09] LABS: BUN/Creatinine Ratio 29 (6-26); Blood Urea Nitrogen 27 mg/dL (8-23); Calcium 8.4 mg/dL (8.6-10.3); Carbon Dioxide 26 mEq/L (23-29); Chloride 106 mEq/L (98-107); Glucose 94 mg/dL (70-105); Osmolality,Calculated 297 (280-300); Potassium 3.3 mEq/L (3.5-5.1); Sodium 141 mEq/L (136-145); eGFR For African Americans > 60 (> 60); eGFR For Non-African Americans > 60 (> 60)
[2020-11-08] MEDS ORDERED: Dexamethasone 4 MG/ML VIAL IVP ONE (13:15)
[2020-11-08] MEDS: Azithromycin 500 MG in 0.9 % Sodium Chloride 250 ML IVPB SCH (13:18)
[2020-11-08] MEDS: cefTRIAXone 1,000 MG in Water for inj. (sterile) 10 ML IVP SCH (20:56)
[2020-11-09] MEDS: Insulin LISPRO 300 UNITS/3 ML VIAL SUBQ SCH ×3 (01:18→12:39)
[2020-11-09] MEDS ORDERED: Furosemide 40 MG/4 ML VIAL IVP ONE (05:28)
[2020-11-09] MEDS: *HR* Heparin 5,000 UNIT/ML VIAL SQ SCH ×2 (05:53→12:40)
[2020-11-09 05:58] LABS: Basophils % 0.3 %; Eosinophils % 0.1 %; Hematocrit 33.4 % (37.5-50.1); Hemoglobin 10.1 g/dL (12.9-16.9); Immature Granulocytes % 2.4 % (0-4); Lymphocytes # 0.7 K/mcL (0.6-4.6); Lymphocytes % 7.4 %; Mean Corpuscular HGB Conc 30.2 g/dL (31.6-35.5); Mean Corpuscular Volume 92.5 fL (83.0-100.0); Mean Platelet Volume 9.6 fL (9.4-12.4); Monocytes # 0.4 K/mcL (0.0-1.3); Monocytes % 3.7 %; Neutrophils # 8.2 K/mcL (1.6-8.9); Platelet Count 278 K/mcL (140-400); Red Blood Count 3.61 M/mcL (4.19-5.50); Red Cell Distribution Width 13.7 % (11.5-14.5); Segmented Neutrophils % 86.1 %; White Blood Count 9.5 K/mcL (4.3-11.1)
[2020-11-09 06:20] LABS: BUN/Creatinine Ratio 35 (6-26); Blood Urea Nitrogen 32 mg/dL (8-23); Calcium 8.5 mg/dL (8.6-10.3); Carbon Dioxide 28 mEq/L (23-29); Chloride 105 mEq/L (98-107); Glucose 115 mg/dL (70-105); Osmolality,Calculated 302 (280-300); Potassium 3.9 mEq/L (3.5-5.1); Sodium 142 mEq/L (136-145); eGFR For African Americans > 60 (> 60); eGFR For Non-African Americans > 60 (> 60)
[2020-11-09] MEDS: Azithromycin 500 MG in 0.9 % Sodium Chloride 250 ML IVPB SCH (10:21)
[2020-11-09 15:51] VITALS: BP 159/69
[2020-11-10] MEDS ORDERED: Azithromycin 250 MG TABLET PO SCH (09:00)
== END 2020-11-09 18:00 | disposition home health service (06) ==
LOC: CDU 16:58 → EMEROOARM 16:58 → SUATTDRO 19:51 → CDU 20:19 → 3NENU 11-07 11:35
PROVIDERS: ADMIT Student in an Organized Health Care Education/Training Program; ATTEND Student in an Organized Health Care Education/Training Program